=== PATIENT | male | born 1940 | race Caucasian/White ===

== ENCOUNTER 2017-05-02 07:32 | Day surgery (SDC) | payer OTHER ==
[~2017-05-02] VITALS: Ht 172.7 cm; Wt 89.5 kg
[~2017-05-02 07:32] MED LIST: ADVIN25/60 INH; ASPI81TA28 PO; BETA10TA2 PO; CEFAZOLIN 2000 MG/60 ML D5W IV SCH; FINA5TAB PO; FRS/40 PO; LACTATED RINGER'S 1000ML 1,000 ML IV SCH; MINO1TAB PO; NTRGSL/4 UT; OXGN; POTA8CAP6 PO; SIMV40TA2 PO
[2017-05-02 08:12] VITALS: BP 174/69; PULSE 79; TEMP 36.5; O2SAT 92; Ht 172.7 cm; Wt 89.5 kg
[2017-05-02 08:32] LABS: BASO % 0.3 %; BASO ABS # 0.02 K/uL (0-0.2); EOS % 2.1 %; HEMATOCRIT 30.5 % (42-52); IG% 0.1 %; LYMPH % 9.8 %; LYMPH ABS # 0.78 K/uL (1.2-3.4); MEAN CELL VOLUME 80.7 fL (80-100); MEAN CORPUSCULAR HEMOGLOBIN 25.1 pg (25-34); MEAN PLATELET VOLUME 8.5 fL (7.4-10.4); MONO % 7.2 %; NEUT % 80.5 %; PLATELET COUNT 254 K/uL (130-400); RED BLOOD COUNT 3.78 M/uL (4.7-6.1); WHITE BLOOD COUNT 7.94 K/uL (4.8-10.8)
[2017-05-02 08:36] LABS: COMPLETE YES; MEAN CORPUSCULAR HGB CONC 31.1 g/dl (32-36)
[2017-05-02] MEDS ORDERED: FENTANYL CITRATE INJ 50 MCG/1 ML 2 ML VIAL ONE (09:28)
[2017-05-02] MEDS ORDERED: MIDAZOLAM HCL 1 MG/ML 2ML VIAL ONE ×2 (09:28→09:39)
[2017-05-02] MEDS ORDERED: FENTANYL CITRATE INJ 50 MCG/1 ML 2 ML VIAL IV PRN ×2 (09:45→10:15)
[2017-05-02] MEDS ORDERED: EpHEDrine SULFATE INJ 50 MG/ML AMP IV PRN ×2 (09:45→10:15)
[2017-05-02] MEDS ORDERED: HYDROmorphone INJ 1 MG/ML SYR IV PRN ×2 (09:45→10:15)
[2017-05-02] MEDS ORDERED: ATROPINE SULFATE 0.1 MG/ML 5ML SYR IV PRN ×2 (09:45→10:15)
[2017-05-02] MEDS ORDERED: ONDANSETRON INJ 2 MG/ML 2 ML VIAL IV PRN ×2 (09:45→10:15)
--- NOTE | 2017-05-02 10:39 | History & Physical Bridge Note ---
H&P Re-Evaluation Bridge Note: I have examined the patient, reviewed the History & Physical and in the interval since the performance of the History & Physical I have noted the following changes of clinical significance: No changes noted
[2017-05-02] MEDS ORDERED: CONRAY 30% 150ML BOTTLE ONE (11:05)
[2017-05-02] MEDS ORDERED: PROPOFOL IV EMULSION 10 MG/ML 20 ML VIAL IV ONE (11:33)
[2017-05-02] MEDS ORDERED: ONDANSETRON INJ 2 MG/ML 2 ML VIAL ONE (11:33)
[2017-05-02] MEDS ORDERED: BELLADONNA/OPIUM SUPP 60 MG SUPP PR ONE (12:12)
--- NOTE | 2017-05-02 12:25 | [facility] Operative Report ---
Operative Report Operative Date May 02, 2017. 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 Ortiz Catcher Helper Surgeon(s) none Estimated Blood Loss 10ML Findings sessile tumor trigone and right ureteral orifice with necrosis in the resection bed. Fluids 1000mL Specimens A. 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 Medically too ill to tolerate cystectomy. we change his stents to keep ureters open and trim any tumors that appear. Description of Procedure Patient had successful spinal anesthesia and was placed in lithotomy position. His genitals were prepped and draped in sterile fashion. Time out held with team. I placed a 21 fr cystoscope and noted medium short prostate and some large papillary tumor around the right UO and sessile tumor of midline trigone. I irrigated out some clot, urine is very bloody from this tumor. The uos are medially displaced near midline and posterior displaced. I grasped left stent tip and withdrew to meatus. I passed a stiff wire up right stent and removed the right ureteral stent and found it to be intact. I then passed a open ended cath on the wire for insulation. I then grasped left stent tip and withdrew to meatus. I passed a stiff wire thru stent to left kidney. I placed 5mL of surgilube into urethra and placed a 26 fr resectoscope to bladder easily. Urethra is unremarkable. I resected around the right ureter to remove all the papillary tumors the resected more deeply in the midline distal and mid trigone. Tumor is with pockets of necrosis and seems invasive. All specimens were rinsed out and I used cautery with loop then button to obtain hemostasis. There are some large venous channels. I removed resectoscope and placed a new 7 fr 24 centimeter firm double J stent on right and left sides. I positioned coil in kidney and bladder with fluoro. I left bladder full and placed a 18 fr coude parra to empty bladder. I placed a B and O suppository for post-op pain. He tolerated procedure well and transferred to recovery room in stable condition. Plan: Home with parra overnight stent change in 7 months ASA 4 clean contaminated case ancef network control operator fluoro 45 seconds. I attest to the content of the Intraoperative Record and any orders documented therein. Any exceptions are noted below.
[2017-05-02] MEDS ORDERED: OXYC-57 PO (12:26)
--- NOTE | 2017-05-02 12:27 | DIAGNOSTIC IMAGING REPORT ---
KUB CLINICAL HISTORY: CYSTO/BILATERAL STENT TECHNIQUE: Image intensifier COMPARISON STUDY: None FINDINGS: Image intensifier utilization for bilateral stent placement/exchange. IMPRESSION: Image intensifier utilization for bilateral stent placement/exchange. Electronically signed by: Peyman Portillo M.D. 05/02/2017 12:26 PM Dictated Date/Time: 05/02/2017 12:25 PM
--- NOTE | 2017-05-02 12:29 | Discharge Instructions ---
Discharge Instructions Date of Service May 02, 2017. Admission Reason for Admission: Hematuria, Malignant Neoplasm Of Bladder Discharge Discharge Diagnosis / Problem: bladder cancer and malignant ureteral obstruction Discharge Goals Goal(s): Improve disease control Activity Recommendations Activity Limitations: resume your previous activity Lifting Limitations: none Exercise/Sports Limitations: none May Resume Sexual Activity: when tolerated Shower/Bathe: no limitations Driving or Machine Use: resume 1 day after discharge . Instructions / Follow-Up Instructions / Follow-Up remove parra tomorrow morning Discharge Diet Recommended Diet: Regular Diet Fluid Restriction: None Procedures Procedures Performed: Cystoscopy, Bilateral Ureteral Stent Change; Transurethral Resection Bladder Tumor Pending Studies Studies pending at discharge: yes List of pending studies: pathology Medical Emergencies . Who to Call and When: Medical Emergencies: If at any time you feel your situation is an emergency, please call 911 immediately. . Non-Emergent Contact Non-Emergency issues call your: Urologist ([phone] ) Call Non-Emergent contact if: temperature is above 100.5 . . "Provider Documentation" section prepared by Zandra Ortiz. . VTE Core Measure Inpt VTE Proph given/why not?: SCD's [place] Drug Monitoring Program Search Results: patient reviewed within database, no issues identified
--- NOTE | 2017-05-02 12:51 | Anesthesiology Progress Note ---
Anesthesia Post Op Note Date & Time May 02, 2017 at 12:50 Vital Signs Pain Intensity: 0 Vital Signs Past 12 Hours Date Time Temp Pulse Resp B/P (MAP) Pulse Ox O2 Delivery O2 Flow Rate FiO2 05/02/17 12:45 36.7 81 12 130/61 95 Nasal Cannula 4 05/02/17 12:35 79 12 139/61 98 Nasal Cannula 4 05/02/17 12:25 82 12 131/64 98 Oxymask 4 05/02/17 12:19 37.1 80 12 130/62 96 Oxymask 2 05/02/17 08:12 36.5 79 24 174/69 (104) 92 Nasal Cannula 4 Notes Mental Status: alert / awake / arousable, participated in evaluation Pt Amnestic to Procedure: Yes Nausea / Vomiting: adequately controlled Pain: adequately controlled Airway Patency, RR, SpO2: stable & adequate BP & HR: stable & adequate Hydration State: stable & adequate Neuraxial Anesthesia: was administered, sensory block is resolving Anesthetic Complications: no major complications apparent Patient is feeling well in recovery with no complaints, VSS. He is able to easily move his legs and toes.
[2017-05-02 12:55] VITALS: BP 148/67; PULSE 79; TEMP 36.9; O2SAT 94
[2017-05-02 13:25] VITALS: BP 123/58; PULSE 81; TEMP 36.9; O2SAT 95
[2017-05-02 13:55] VITALS: BP 148/67; PULSE 83; TEMP 36.5; O2SAT 95
[2017-10-09] MEDS ORDERED: SPRIN/30 INH (10:43)
[2017-10-09] MEDS ORDERED: ACET-1311 PO (10:43)
[2017-10-09] MEDS ORDERED: DMD20 PO (10:43)
[2017-10-09] MEDS ORDERED: ZRX25 PO (10:43)
[2017-10-09] MEDS ORDERED: FERR1TAB61 PO (10:43)
[2017-10-09] MEDS ORDERED: ALBINS/ INH (10:43)
[2017-10-09] MEDS ORDERED: SENN-61 PO (10:43)
== END 2017-05-02 14:42 | disposition home or self-care (01) ==
LOC: C.ACU 07:32
PROVIDERS: ATTEND Urology
DX: C67.1 Malignant neoplasm of dome of bladder (principal); C67.0 Malignant neoplasm of trigone of bladder; C67.4 Malignant neoplasm of posterior wall of bladder; I25.10 Atherosclerotic heart disease of native coronary artery without angina pectoris; J44.9 Chronic obstructive pulmonary disease, unspecified; M19.90 Unspecified osteoarthritis, unspecified site; N18.9 Chronic kidney disease, unspecified; E66.9 Obesity, unspecified; Z68.30 Body mass index [BMI] 30.0-30.9, adult; Z98.890 Other specified postprocedural states; Z87.891 Personal history of nicotine dependence; Z85.118 Personal history of other malignant neoplasm of bronchus and lung

== ENCOUNTER 2017-10-10 08:32 | Day surgery (SDC) | payer OTHER ==
[~2017-10-10] VITALS: Ht 172.7 cm; Wt 89.5 kg
[~2017-10-10 08:32] MED LIST changes: +ACET-1311 PO; +ALBINS/ INH; -ASPI81TA28 PO; -CEFAZOLIN 2000 MG/60 ML D5W IV SCH; +DMD20 PO; +FERR1TAB61 PO; -FRS/40 PO; +SENN-61 PO; +SPRIN/30 INH; +ZRX25 PO
[2017-10-10 09:23] VITALS: BP 123/68; PULSE 91; TEMP 36.6; O2SAT 91; Ht 172.7 cm; Wt 89.5 kg
[2017-10-10] MEDS ORDERED: PHENYLEPHRINE 100MCG/ML 5ML SYR ONE ×2 (09:39→11:09)
[2017-10-10] MEDS ORDERED: EpHEDrine SULFATE 50MG/5ML SYR ONE (09:39)
[2017-10-10] MEDS ORDERED: LIDOCAINE HCL 2% 2 ML VIAL (20MG/ML) ONE (09:39)
[2017-10-10] MEDS ORDERED: MIDAZOLAM HCL 1 MG/ML 2ML VIAL ONE (09:40)
[2017-10-10] MEDS ORDERED: FENTANYL CITRATE INJ 50 MCG/1 ML 2 ML VIAL ONE (09:40)
[2017-10-10] MEDS ORDERED: ONDANSETRON INJ 2 MG/ML 2 ML VIAL ONE (09:40)
[2017-10-10] MEDS ORDERED: PROPOFOL IV EMULSION 10 MG/ML 20 ML VIAL IV ONE (09:40)
--- NOTE | 2017-10-10 10:16 | History and Physical ---
History & Physical Date Oct 10, 2017. Chief Complaint renal insufficiency with fluid overload and chronic ureteral obstruction due to bladder cancer History of Present Illness The patient is a 77 year old male with complaints of fluid overload, rising creatinine and a chronic problem of ureteral obstruction due to bladder cancer. He has chronic bilateral ureteral stents and last had them changed 5 months ago. We plan stent change to make sure stent blockage is not a cause of his newer problems. Additional History Hepatic Disease: No Endocrine Disorder: No Kidney Disease: Yes Hypertension: Yes Heart Disease: Yes Bleeding Tendencies: No Infectious Diseases: No Other: progressing lung cancer Allergies Coded Allergies: Vitamin K (Verified Allergy, Intermediate, sweat, red all over, 10/09/17) Home Medications Scheduled Betaxolol Hcl (Betaxolol Hcl), 10 MG PO BID Ferrous Sulfate (Iron), 1 TAB PO Q2D Finasteride (Proscar), 5 MG PO QPM Fluticasone Prop/Salmeterol (Advair Diskus 250/50 60 Dose), 1 PUFF INH BID Home O2 Therapy (Oxygen), 4 LITERS NA CONTINOUS Metolazone (Metolazone), 1 TAB PO QPM Minoxidil (Minoxidil), 10 MG PO BID Nitroglycerin (Nitrostat), 0.4 MG UT PRN Potassium Chloride (Klor-Con Ext Rel), 8 MEQ PO QID Simvastatin (Zocor), 40 MG PO QPM Tiotropium [place] (Spiriva Handihaler), 1 CAP INH AM Torsemide (Torsemide), 40 MG PO BID Scheduled PRN Acetaminophen (Tylenol), 650 MG PO Q6 PRN for Pain Albuterol Sulf (Proventil 0.083% 2.5MG/3ML), 2.5 MG INH QID PRN for SOB/Wheezing Senna (Senokot), 1 TAB PO DAILY PRN for Constipation Physical Examination Skin: warm/dry, no rash Eyes: normal inspection ENT: normal ENT inspection Neck: supple, no adenopathy, trachea midline Respiratory/Chest: + pertinent finding (distant breath sounds) Cardiovascular: regular rate, rhythm Abdomen / GI: normal bowel sounds, non tender Extremities: + pertinent finding (2+ right and 1+ left pitting edema) Diagnosis ureteral obstruction renal insufficiency fluid overload ASA Classification: ASA Class IV Plan of Treatment plan cysto with exchange of bilateral ureteral stents today. Plan to do under sedation ancef clin application specialist.
[2017-10-10] MEDS ORDERED: CEFAZOLIN SOD 1 GM VIAL ONE (10:55)
[2017-10-10] MEDS ORDERED: EpHEDrine SULFATE INJ 50 MG/ML AMP IV PRN (11:00)
[2017-10-10] MEDS ORDERED: CEFAZOLIN SOD 2000MG/10 ML IV PUSH IV ONE (11:00)
[2017-10-10] MEDS ORDERED: ATROPINE SULFATE 0.1 MG/ML 5ML SYR IV PRN (11:00)
[2017-10-10] MEDS ORDERED: BELLADONNA/OPIUM SUPP 60 MG SUPP PR ONE ×2 (11:08→11:13)
--- NOTE | 2017-10-10 11:24 | [facility] Operative Report ---
Operative Report Operative Date Oct 10, 2017. Pre-Operative Diagnosis Bladder Cancer, Renal Insufficiency, Ureteral Obstruction Post-Operative Diagnosis same as preop Procedure(s) Performed Cystoscopy, Bilateral Stent Exchange Surgeon Dr. Ortiz Transportation Dispatch Manager Surgeon(s) none Estimated Blood Loss 3 cc Findings clean stents, evidence of tumor around uos. Fluids 300mL Specimens none per surgeon Drains 7 fr 24 centimeter stiff stents Anesthesia iv sedation Complication(s) None Disposition Recovery Room / PACU Indications renal insufficiency ureteral obstruction and fluid overload. Description of Procedure Patient had iv sedation and was placed in lithotomy position. His genitals were prepped and draped in sterile fashion. Time out held with team. I placed a 18 fr flexible cystoscope and noted medium short prostate and some pale nodular growths around the medially displaced ureters. The uos are medially displaced near midline and posterior displaced. I placed a road runner up right ureter along side the stent. I then exchanged the road runner for a stiff wire via a 5 fr catheter. I then grasped right left stent tip and withdrew to meatus. It also snagged the left stent and withdrew it to meatus as well. I removed right stent and found it to be intact. I placed a road runner thru the left stent to the left kidney. I then removed the left stent and found it to be intact. I exchanged the road runner for a stiff wire up left ureter and placed a new 7 fr 24 centimeter firm double J stents on right and left sides. I positioned coil in kidney and bladder with fluoro. I left bladder full and placed a 18 fr red rubber parra to empty bladder. I placed a B and O suppository for post-op pain. He tolerated procedure well and transferred to recovery room in stable condition. Plan: Home today stent change in 7 months ASA 4 clean contaminated case ancef telephone repairer fluoro 1 minute 3 seconds I attest to the content of the Intraoperative Record and any orders documented therein. Any exceptions are noted below.
[2017-10-10] MEDS ORDERED: HYDR-5688 PO (11:25)
--- NOTE | 2017-10-10 11:28 | Discharge Instructions ---
Discharge Instructions Date of Service Oct 10, 2017. Admission Reason for Admission: Bladder Cancer Discharge Discharge Diagnosis / Problem: ureteral obstruction, bladder cancer, renal insufficiency Discharge Goals Goal(s): Improve disease control Activity Recommendations Activity Limitations: resume your previous activity Lifting Limitations: none Exercise/Sports Limitations: none Shower/Bathe: no limitations Driving or Machine Use: resume 1 day after discharge . Instructions / Follow-Up Instructions / Follow-Up will need to change stents in about 7 months Current Hospital Diet Patient's current hospital diet: Discharge Diet Recommended Diet: Regular Diet Fluid Restriction: None Procedures Procedures Performed: Cystoscopy, Bilateral Stent Exchange Pending Studies Studies pending at discharge: no Medical Emergencies . Who to Call and When: Medical Emergencies: If at any time you feel your situation is an emergency, please call 911 immediately. . Non-Emergent Contact Non-Emergency issues call your: Urologist Call Non-Emergent contact if: temperature is above 100.5, your pain is not controlled . . "Provider Documentation" section prepared by Zandra Ortiz. . VTE Core Measure Inpt VTE Proph given/why not?: [place]CD's [place] Drug Monitoring [place] Search Results: patient reviewed within database, no issues identified
--- NOTE | 2017-10-10 11:51 | Anesthesiology Progress Note ---
Anesthesia Progress Note Date of Service Oct 10, 2017. Progress Notes patient noticed to be in new onset A Fib soon after arrival from OR at 1118am.Dr Haynes called and will see pt.
--- NOTE | 2017-10-10 12:30 | Anesthesiology Progress Note ---
Anesthesia Post Op Note Date & Time Oct 10, 2017 at 12:30 Vital Signs Pain Intensity: 0 Vital Signs Past 12 Hours Date Time Temp Pulse Resp B/P (MAP) Pulse Ox O2 Delivery O2 Flow Rate FiO2 10/10/17 11:44 98 15 10/10/17 11:44 89 15 90 10/10/17 11:41 119/62 10/10/17 11:39 93 29 92 10/10/17 11:39 91 29 10/10/17 11:36 104/56 10/10/17 11:34 86 26 96 10/10/17 11:34 88 26 10/10/17 11:33 91 31 97 10/10/17 11:33 92 31 10/10/17 11:31 109/58 10/10/17 11:28 83 31 97 10/10/17 11:28 85 31 10/10/17 11:26 108/65 10/10/17 11:23 88 32 10/10/17 11:23 90 32 95 10/10/17 11:21 114/61 10/10/17 11:19 120/75 10/10/17 11:18 36.4 90 22 120/75 94 Oxymask 10 10/10/17 09:23 36.6 91 20 123/68 (86) 91 Nasal Cannula 5 Notes Mental Status: alert / awake / arousable, participated in evaluation Pt Amnestic to Procedure: Yes Nausea / Vomiting: adequately controlled Pain: adequately controlled Airway Patency, RR, SpO2: stable & adequate BP & HR: stable & adequate Hydration State: stable & adequate Anesthetic Complications: no major complications apparent
[2017-10-10 12:57] LABS: BASO % 0.1 %; BASO ABS # 0.01 K/uL (0-0.2); EOS % 0.5 %; IG% 0.2 %; LYMPH % 7.6 %; LYMPH ABS # 0.83 K/uL (1.2-3.4); MEAN CELL VOLUME 81.3 fL (80-100); MEAN CORPUSCULAR HEMOGLOBIN 25.8 pg (25-34); MEAN PLATELET VOLUME 8.9 fL (7.4-10.4); MONO % 6.7 %; NEUT % 84.9 %; PLATELET COUNT 296 K/uL (130-400); RED BLOOD COUNT 4.18 M/uL (4.7-6.1); WHITE BLOOD COUNT 10.87 K/uL (4.8-10.8)
[2017-10-10 13:03] LABS: INR 1.2 (0.9-1.1); PARTIAL THROMBOPLASTIN RATIO 1.2; PROTHROMBIN TIME (PATIENT) 12.7 SECONDS (9.0-12.0)
[2017-10-10 13:22] LABS: ALB/GLOB RATIO 0.5 (0.9-2); BUN/CREATININE RATIO 40.5 (10-20); CALCIUM 8.5 mg/dl (8.5-10.1); CREATININE 1.77 mg/dl (0.60-1.40); MAGNESIUM 3.1 mg/dl (1.8-2.4); POTASSIUM 2.9 mmol/L (3.5-5.1)
[2017-10-10] MEDS ORDERED: POTASSIUM CHLORIDE 20 MEQ TABCR PO STA (13:29)
[2017-10-10] MEDS ORDERED: METOPROLOL TARTRATE 1 MG/ML VIAL IV STA ×2 (13:30)
[2017-10-10 13:36] LABS: COMPLETE YES; MEAN CORPUSCULAR HGB CONC 31.8 g/dl (32-36)
[2017-10-10] MEDS ORDERED: METOPROLOL TARTRATE 1 MG/ML VIAL ONE (13:38)
[2017-10-10 14:17] VITALS: BP 109/56; PULSE 88; TEMP 36.6; O2SAT 93
--- NOTE | 2017-10-10 14:24 | DIAGNOSTIC IMAGING REPORT ---
KUB HISTORY: B/L STENT CHANGE FLUOROSCOPY TIME: 27 seconds. FINDINGS: 8 fluoroscopic spot images were submitted for review. Initial images demonstrate bilateral ureteral stents. A bilateral ureteral stent exchange was performed. The visualized stents appear to be in good position.. IMPRESSION: Fluoroscopy provided for bilateral ureteral stent exchange. Electronically signed by: Scooby Oneal M.D. 10/10/2017 2:23 PM Dictated Date/Time: 10/10/2017 2:19 PM
--- NOTE | 2017-10-10 14:27 | Cardiology Consultation ---
Cardiology Consultation Date of Consultation: Oct 10, 2017 History of Present Illness Nico Pearl is a 77 year old male seen in cardiology consultation per the request of Dr Mora of anesthesia for the evaluation of atrial fibrillation. The patient's PCP is Dr Figueredo in [place]. The patient's primary bobbin doffer is Dr Lyudmila Smith of [facility] cardiology. He has a history of non-small cell lung carcinoma with history of partial lobectomy of the right lower lobe. He also has a history of transitional cell bladder carcinoma. He has been on palliative therapy with Keytruda per his [facility] records. He recently been hospitalized in August 2017 at [facility] for shortness of breath and volume overload. His been felt that he suffers from progressive urinary outflow tract obstruction with rising creatinine, lower extremity edema, and shortness of breath. During that hospitalization he received IV diuretic therapy as an outpatient has been treated with metolazone, torsemide, and oral potassium supplementation. Review of his outpatient labs reveals progressive worsening kidney function with most recent serum creatinine of 1.9 yesterday, 10/09/17. Recent low potassium with measurement of 3.3 mmol per liter yesterday, and 2.9 mmol per liter on 10/08/17. I was asked to see him in the postanesthesia care unit. The patient had come in today for an elective urology procedure. He underwent cystoscopy, and his Pepcid placed ureter stents were removed and new stents were inserted. He has been having this performed and a somewhat routine basis to prevent progressive urinary outflow tract obstruction. The procedure went well, post procedure, he was noted to be any rate controlled atrial fibrillation. During my assessment of the patient in postanesthesia care unit bed 4, he was in no acute distress. He had no complaints. Denied chest discomfort or shortness of breath. His only concern was that he does have lower leg edema, which she states is currently at its recent baseline. EKG performed 10/10/17 at 11:36 AM revealed atrial fibrillation at 90 bpm with noted PVCs, and mild lateral ST segment changes. Compared to his most recent EKG tracing performed with the [employer] system dated 09/03/17, atrial fibrillation has replaced sinus rhythm, producing noted anteroseptal T-wave inversions have resolved. History Past Medical History: 1. Non-small cell lung carcinoma 2. Transitional cell bladder carcinoma 3. History of 8 cm infrarenal abdominal aortic aneurysm with prior repair 4. 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 COPD on home oxygen 6. Mild to moderate pulmonary hypertension with primary pressures by echocardiography in the 40-54 mmHg range on past echocardiograms, attributed to his underlying lung disease 7. Apparent remote history of colon cancer for which he had surgery followed by chemotherapy in 2007 Past Surgical History: 1. 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 Multiple cystoscopies, and ureter stent placements 4. Thoracotomy, partial lobectomy, 2011 Social History: Patient is a former cigarette smoker, having smoked one pack per day for 20 years he quit in 2001 He occasionally drinks a beer Family History: Family history of congestive heart disease in his father who at age 80 Review Of Systems See above for pertinent positives & negatives. A total of 10 systems reviewed and were otherwise negative. Allergies Coded Allergies: Vitamin K (Verified Allergy, Intermediate, sweat, red all over, 10/09/17) Medications Reported Home Medications Medications Dose Route/Sig Max Daily Dose Days Date Category [place] 5MG/325MG (Acetaminophen/Hydrocodone Bitart) Tab 1 Tablet PO Q6HWA PRN 10/10/17 Rx Metolazone 2.5 Mg Tab 1 Tab PO QPM 10/09/17 Reported Torsemide 20 Mg Tab 40 Mg PO BID 10/09/17 Reported Iron (Ferrous Sulfate) 45 Mg Tab 1 Tab PO Q2D 10/09/17 Reported Tylenol (Acetaminophen) 325 Mg Tab 650 Mg PO Q6 PRN 10/09/17 Reported Spiriva Handihaler (Tiotropium [place]) 30 Puff/540 Mcg Aerp 1 Cap INH AM 10/09/17 Reported Senokot (Senna) 8.6 Mg Tab 1 Tab PO DAILY PRN 10/09/17 Reported Proventil 0.083% 2.5MG/3ML (Albuterol Sulf) 2.5 Mg/3 Ml Nebu 2.5 Mg INH QID PRN 10/09/17 Reported Nitrostat (Nitroglycerin) 0.4 Mg Tab 0.4 Mg UT PRN 03/22/16 Reported Klor-Con Ext Rel (Potassium Chloride) 8 Meq Tabcr 8 Meq PO QID 5/11/16 Reported Proscar (Finasteride) 5 Mg Tab 5 Mg PO QPM 03/22/16 Reported Oxygen Gas 4 Liters NA CONTINOUS 09/08/13 Reported Advair Diskus 250/50 60 Dose (Fluticasone Prop/Salmeterol) 1 Ea Aerp 1 Puff INH BID 09/08/13 Reported Zocor (Simvastatin) 40 Mg Tab 40 Mg PO QPM 09/08/13 Reported Betaxolol Hcl 10 Mg Tab 10 Mg PO BID 09/08/13 Reported Minoxidil 10 Mg Tab 10 Mg PO BID 09/08/13 Reported Physical Exam Vital Signs (Last 8hrs): Last Vital Signs Documentation Date Time Temp Pulse Resp B/P (MAP) Pulse Ox O2 Delivery O2 Flow Rate FiO2 10/10/17 13:58 86 23 91 10/10/17 13:56 116/50 10/10/17 11:55 36.4 10/10/17 11:18 Oxymask 10 General Appearance: Alert and Oriented x3. NAD. Head: Normocephalic Atraumatic. Eyes: PERRLA, EOMI, conjunctiva and sclera clear Neck: Supple. No carotid bruits noted. No JVD. No HJD. Respiratory: Breath sounds clear to auscultation bilaterally. No w/r/r. Cardiovascular: Regular rhythm, no murmurs Abdomen: Normal bowel sounds, soft nontender. no abdominal bruits. Extremities: Knee-high pneumatic compression devices in place, 1+ lower extremity, ankle, pedal edema Neuro: No focal deficits. Psychiatric: Normal affect. Data Last Resulted 10/10/17 12:42 Red Blood Count 4.18, Mean Corpuscular Volume 81.3, Mean Corpuscular Hemoglobin 25.8, Mean Corpuscular Hemoglobin Concent 31.8, Mean Platelet Volume 8.9, Neutrophils (%) (Auto) 84.9, Lymphocytes (%) (Auto) 7.6, Monocytes (%) (Auto) 6.7, Eosinophils (%) (Auto) 0.5, Basophils (%) (Auto) 0.1, Neutrophils # (Auto) 9.23, Lymphocytes # (Auto) 0.83, Monocytes # (Auto) 0.73, Eosinophils # (Auto) 0.05, Basophils # (Auto) 0.01 Last Resulted 10/10/17 12:42 Past 24 Hours Test 10/10/17 12:42 Range/Units Prothromb Time International Ratio 1.2 H 0.9-1.1 Prothrombin Time 12.7 H 9.0-12.0 SECONDS EKG: As outlined in the history of present illness Telemetry reviewed: Atrial fibrillation, 90-92 bpm on the postanesthesia care unit to telemetry Summary of Transthoracic echocardiogram report from study performed in [place] 04/24/17 Severe right atrial enlargement, severe left atrial enlargement. Mild concentric left ventricular hypertrophy, normal left ventricular wall motion, calculated left ventricular ejection fraction 61%. The right ventricle was reportedly normal ventricular size and systolic function Mild tricuspid regurgitation is present with mild pulmonary hypertension, calculated pulmonary artery systolic pressure was 47 mmHg. A trivial circumferential pericardial effusion was noted Assessment & Plan IMPRESSION: 77 y/o male 1. Newly recognized atrial fibrillation, controlled ventricular rate 2. Hypokalemia 3. Small circumferential pericardial effusion on echocardiogram without tamponade physiology 4. Normal biventricular systolic function 5. Mild to moderate pulmonary hypertension, likely due to underlying lung disease, with h/o COPD 6. Non-small cell lung carcinoma 7. Transitional cell bladder carcinoma 8. LE edema, urinary outflow tract obstruction prompting ureter stenting/ stents changed out today, renal insufficiency, low albumin RECOMMENDATIONS: The patient is on significant diuretic therapy for treatment of edema and volume overload with metolazone and torsemide. I reviewed his labs at [facility], and his creatinine today is a little bit better than the 1.9 mg/d drawn yesterday, 10/10 and 1.8 mg/dl on 10/08. Hypokalemia is noted with potassium of 2.9 mmol/l on 10/08 and 3.3 10/09, 2.9 today 10/10. Pt is to be on potassium supplementation 4 times per day, with does just increased 2 days ago by his PCP, however, pt had yet to enact this. Echocardiogram performed today reveals stable / normal biventricular function and a small circumferential pericardial effusion, similiar to that which was described on the report of the echo performed in [place] in 04/2017. Pt received 60 mgEq of oral potassium chloride in the PACU. Metoprolol 2.5 mg IV x 1 administered. Plan to continue pt's home betaxolol therapy. He is asymptomatic from the atrial fibrillation so will continue current rate control. I discussed his case with Dr Ortiz of urology. We are both in agreement that although the patient is at a high risk for cardioembolic stroke given his age and history of vascular disease his bleeding risk is prohibitively high given his bladder tumor and h/o hematuria without antiplatelet therapy or anticoagulation. Will therefore proceed without aspirin or anticoagulation. I called his PCP, Dr Figueredo in [place] and provided an update by phone and he agreed to follow up the patient's potassium level with a repeat BMP in a few days. He is already monitoring this closely. I am hopeful that with change out of his ureter stents his urinary outpt will be better and his renal function and edema will hopefully improve. His edema is likely multifactorial given bladder Ca with urinary outflow obstruction, low albumin, and pulmonary HTN. Once again the RV chamber size and systolic function appear normal on echo performed today. I will place a note in the pt's [facility] chart to update Dr Smith of [facility] cardiology whom had most recently seen the patient in April, as sooner follow up may be necessary. DISPOSITION: Discharge to home. Follow up with PCP.
[2017-10-10 14:47] VITALS: BP 119/61; PULSE 97; TEMP 36.6; O2SAT 90
[2017-10-10 15:17] VITALS: BP 118/58; PULSE 80; TEMP 36.6; O2SAT 92
--- NOTE | 2017-10-10 17:26 | ECHOCARDIOGRAM REPORT ---
*NOTICE TO RECEIVING LIBERTARIAN AGENCY This information is strictly Confidential and protected under [place] law. [place] law prohibits you from making any further disclosure of this information unless further disclosure is expressly permitted by the written consent of the person to whom it pertains or is authorized by law. A general authorization for the release of medical or other information is not sufficient for this purpose. Hospital accepts no responsibility if the information is made available to any other person, INCLUDING THE PATIENT. Interpretation Summary * Name: CARMENCITA VILLASENOR Study Date: 10/10/2017 01:30 PM BP: 111/68 mmHg * Patient Location: [facility] HR: 88 * : 1940 (M/d/yyyy) Gender: Male Height: 68 in * Age: 77 yrs Ethnicity: CA Weight: 197 lb * Ordering Physician: Ferny Haynes * Referring Physician: Zandra Ortiz * Performed By: Genesis Whitman RCS * * Reason For Study: A-FIB, Hx of Pericardial Effusion, Pulm. HTN * BSA: 2.0 m2 * The study was technically adequate. * -- Conclusions -- * Atrial fibrillation with controlled ventricular rate was present at the time of the echocardiogram. * The left ventricular wall motion is normal. * Ejection Fraction = 60-65%. * The right ventricle is normal in size and function. * There is mild tricuspid regurgitation. * The pulmonary artery systolic pressure is calculated to be 36 mm Hg. * There is a small circumferential pericardial effusion, with most significant fluid accumulation adjacent to the posterior and lateral left ventricular collazo. * There are no echocardiographic indications of cardiac tamponade. Procedure Details * A complete two-dimensional transthoracic echocardiogram was performed (2D, M-mode, Doppler and color flow Doppler). Left Ventricle * The left ventricle is normal in size. * There is normal left ventricular wall thickness. * Left ventricular systolic function is normal. * Ejection Fraction = 60-65%. * The left ventricular wall motion is normal. Right Ventricle * The right ventricle is normal in size and function. Atria * The left atrial size is normal. * Right atrial size is normal. * There is no evidence of atrial septal defect, but resolution does not allow assessment for a patent foramen ovale. Mitral Valve * The mitral valve is normal. * There is no mitral valve stenosis. * Significant mitral regurgitation is absent. Tricuspid Valve * The tricuspid valve is normal. * There is no tricuspid stenosis. * There is mild tricuspid regurgitation. * The pulmonary artery systolic pressure is calculated to be 36 mm Hg. Aortic Valve * The aortic valve is trileaflet. * Aortic stenosis is absent. * There is no significant aortic regurgitation. Pulmonic Valve * The pulmonary valve is not well seen, but the Doppler examination is normal without significant regurgitation or stenosis. Great Vessels * The aortic root and proximal ascending aorta are normal sized. Pericardium/Pleural * There is a small circumferential pericardial effusion, with most significant fluid accumulation adjacent to the posterior and lateral left ventricular collazo. * There are no echocardiographic indications of cardiac tamponade. Great Vessels * Normal inferior vena cava diameter and respiratory variation suggests normal central venous pressure. * Normal inferior vena cava size and collapsability with sniff indicates a normal right atrial pressure of 3 mmHg MMode 2D Measurements and Calculations IVSd 0.95 cm IVSs 1.3 cm LVIDd 4.4 cm LVIDs 2.6 cm LVPWd 1.0 cm LVPWs 1.4 cm IVS/LVPW 0.92 FS 39.8 % EDV(Teich) 86.8 ml ESV(Teich) 25.5 ml EF(Teich) 70.6 % EDV(cubed) 84.1 ml ESV(cubed) 18.4 ml EF(cubed) 78.2 % % IVS thick 37.8 % % LVPW thick 35.1 % LV mass(C)d 144.9 grams LV mass(C)dI 71.3 grams/m\S\2 LV mass(C)s 112.0 grams LV mass(C)sI 55.2 grams/m\S\2 SV(Teich) 61.3 ml SI(Teich) 30.2 ml/m\S\2 SV(cubed) 65.7 ml SI(cubed) 32.4 ml/m\S\2 Ao root diam 3.9 cm Ao root area 12.0 cm\S\2 ACS 1.9 cm LA dimension 5.8 cm asc Aorta Diam 3.6 cm LA/Ao 1.5 Doppler Measurements and Calculations Ao V2 max 99.6 cm/sec Ao max PG 4.0 mmHg Ao max PG (full) -0.56 mmHg LV V1 max PG 4.5 mmHg LV V1 max 106.4 cm/sec PA V2 max 85.5 cm/sec PA max PG 3.0 mmHg TR max jin 284.3 cm/sec
== END 2017-10-10 15:12 | disposition home or self-care (01) ==
LOC: C.ACU 08:32
PROVIDERS: ATTEND Urology
DX: C67.9 Malignant neoplasm of bladder, unspecified (principal); N28.9 Disorder of kidney and ureter, unspecified; E87.79 Other fluid overload; Z46.6 Encounter for fitting and adjustment of urinary device